=== PATIENT | female | born 1990 | race Caucasian/White ===

== ENCOUNTER → 2019-10-08 11:08 | Outpatient (CLI) | payer OTHER, SELFPAY ==
[2019-10-08 12:11] LABS: Appearance Urine UA CLEAR; Bilirubin Urine UA NEGATIVE (NEGATIVE); Color Urine UA YELLOW; Glucose Urine UA NEGATIVE (Negative); Ketones Urine UA NEGATIVE (NEGATIVE); Leukocyte Esterase Urine UA NEGATIVE (NEGATIVE); Nitrite Urine UA NEGATIVE (Negative); Occult Blood Urine UA NEGATIVE (Negative); Protein Urine UA NEGATIVE (Negative); Urobilinogen Urine UA 0.2 E.U./dL (0.2)
[2019-10-08 12:19] LABS: Add Manual Diff / Slide Review NO; Basophils Absolute Auto 0 /uL (0-100); Basophils Percent Auto 0.3 % (0-2); Eosinophils Absolute Auto 100 /uL (0-450); Eosinophils Percent Auto 1.3 % (2-4); Hemoglobin 13.3 g/dL (12.0-16.0); Lymphocytes Absolute Auto 1200 /uL (1100-4500); Lymphocytes Percent Auto 24.7 % (25-40); Mean Corpuscular Hemoglobin 33.1 PG (26-34); Mean Corpuscular Volume 94.7 fL (80-100); Monocytes Absolute Auto 300 /uL (0-900); Monocytes Percent Auto 5.9 % (3-14); Neutrophils Absolute Auto 3200 /uL (1500-7000); Neutrophils Percent Auto 67.8 % (50-75); Platelet Count 218 X10^3/uL (150-400); Red Blood Cell Count 4.02 X10^6/uL (4.0-5.2); Red Cell Distribution Width 12.2 % (11.6-14.8); White Blood Cell Count 4.7 X10^3/uL (4.5-11.0)
[2019-10-09 08:37] LABS: RPR Screen Non Reactive (Non Reactive)
[2019-10-09 12:08] LABS: Varicella IgG Antibody 1404 index (Immune >165)
[2019-10-10 16:00] LABS: Hepatitis B Surface Antigen NEGATIVE s/c (NEGATIVE); Rubella Antibody IgG 14.7 IU/mL (>15)
[2019-10-10 16:12] LABS: HIV 1 & 2 Ab/Ag 4th Gen Combo NEGATIVE (NEGATIVE); Hep C Virus Ab w/Reflex Quant NEGATIVE s/c (NEGATIVE)
== END ==
PROVIDERS: Referring Provider Obstetrics & Gynecology; Visit Provider Obstetrics & Gynecology
DX: Z34.81 Encounter for supervision of other normal pregnancy, first trimester (principal)
CPT/HCPCS: 36415; 80055; 81003; 86787; 86803; 86850; 86900; 86901; 87086; 87389

== ENCOUNTER → 2019-10-14 10:36 | Outpatient (CLI) | payer OTHER, SELFPAY ==
[2019-10-14 11:58] LABS: Specimen Label KIT TEST
== END ==
PROVIDERS: Referring Provider Obstetrics & Gynecology; Visit Provider Obstetrics & Gynecology
DX: Z34.81 Encounter for supervision of other normal pregnancy, first trimester (principal); Z3A.12 12 weeks gestation of pregnancy
CPT/HCPCS: 36415

== ENCOUNTER → 2019-12-05 09:43 | Outpatient (CLI) | payer OTHER, SELFPAY ==
--- NOTE | 2019-12-05 09:44 | DI.US.S_ITS ---
PROCEDURE: US OB >= 14 WEEKS FETUS INDICATIONS: ANATOMY OUTSIDE/PRIOR DATING DATA: First dating scan (date and location): 09/12/19 Estimated date of delivery (DESTINY) from first dating scan: 04/22/20. TECHNIQUE: Real-time scanning was performed of the fetus, with image documentation and biometric measurements. Endovaginal scanning: No COMPARISON: [facility], , OB <= 14 WEEKS FETUS, 09/12/2019, 13:02. FINDINGS: General: A single living intrauterine gestation is present. Presentation: Posterior fundal. Placenta: Placental position is posterior fundal, without previa. Amniotic fluid index: 15.4 cm, normal range is 5-24 cm. heart rate: 136 beats per minute. Maternal cervical canal: 3.4 cm long. Normal lower limit is 2.5 cm. biometrics: Biparietal diameter: 21 weeks 0 days Head circumference: 20 weeks 5 days Abdominal circumference: 20 weeks 3 days Femur length: 20 weeks 2 days Estimated gestational age from initial scan: 20 weeks 1 day Composite gestational age from present scan: 20 weeks 4 days Estimated weight and percentile: 354 g; 63rd percentile Measurement variability for biometric dating: +/- 7 days from 14 weeks to 15 weeks 6 days gestation, +/- 10 days from 16 weeks to 21 weeks 6 days gestation, +/- 2 weeks from 22 weeks to 27 weeks 6 days gestation, +/- 3 weeks for 28 weeks gestation or later. weight reference: 4500 g or EFW >90/95% is considered macrosomia or large for gestational age. EFW <10% is small for gestational age. EFW 5% or less is considered intra-uterine growth restriction. Anatomic survey: Neuro: Ventricles are non-dilated at less than 10 mm. Cisterna magna is normal at 3-11 mm. Cerebellum is normal in size and morphology. Nuchal skin fold: Normal at less than 6 mm between 14-21 weeks gestational age. Face: Nose and lips, facial profile are normal. Spine: No evidence for spina bifida. Heart: 4-chambered heart is present, with normal ventricular outflow tracts. Diaphragm: Diaphragm is intact. Stomach: Left-sided stomach is present. Kidneys: No hydronephrosis. Normal is less than 5 mm in 2nd trimester, less than 7 mm in 3rd trimester. Cord: 3-vessel cord has orthotopic insertion. Bladder: Normal in size. Extremities: All 4 extremities identified. IMPRESSION Single living IUP redemonstrated and interval growth is normal. Normal anatomic survey. Dictated by: Luis A AZEVEDO Interpreted: Tessa Hdz MD on 12/05/2019 at 11:22 Approved by: Tessa Hdz M.D. on 12/05/2019 at 13:22
== END ==
PROVIDERS: Referring Provider Obstetrics & Gynecology; Visit Provider Obstetrics & Gynecology
DX: Z34.02 Encounter for supervision of normal first pregnancy, second trimester (principal); Z3A.20 20 weeks gestation of pregnancy
CPT/HCPCS: 76811

== ENCOUNTER → 2020-02-04 08:20 | Outpatient (CLI) | payer OTHER, SELFPAY ==
[2020-02-04 11:00] LABS: Hematocrit 30.3 % (36-46); Hemoglobin 10.6 g/dL (12.0-16.0)
[2020-02-04 11:24] LABS: GTT (PREG) 1 Hour PP 50gm Dose 103 mg/dL (76-139)
== END ==
PROVIDERS: PCP Obstetrics & Gynecology; Referring Provider Obstetrics & Gynecology; Visit Provider Obstetrics & Gynecology
DX: Z34.82 Encounter for supervision of other normal pregnancy, second trimester (principal); Z3A.25 25 weeks gestation of pregnancy
CPT/HCPCS: 36415; 82950; 85014; 85018

== ENCOUNTER 2020-03-15 20:50 | Outpatient (CLI) | payer OTHER, SELFPAY | END 2020-03-15 21:30 | disposition home or self-care (01) | LOC: LABOR 21:16 → OB 03-16 13:01 | PROVIDERS: PCP Obstetrics & Gynecology; Referring Provider Obstetrics & Gynecology; Visit Provider Obstetrics & Gynecology | DX: O26.893 Other specified pregnancy related conditions, third trimester (principal); N89.8 Other specified noninflammatory disorders of vagina; O98.313 Other infections with a predominantly sexual mode of transmission complicating pregnancy, third trimester; Z3A.34 34 weeks gestation of pregnancy | CPT/HCPCS: 59025; 84112; G0378; G0379 ==

== ENCOUNTER → 2020-03-27 15:12 | Outpatient (CLI) | payer OTHER, SELFPAY ==
[2020-03-28 14:14] LABS: Strep Grp B PCR POS for Grp B Strep
== END ==
PROVIDERS: PCP Obstetrics & Gynecology; Visit Provider Obstetrics & Gynecology
DX: Z34.83 Encounter for supervision of other normal pregnancy, third trimester (principal); Z3A.36 36 weeks gestation of pregnancy
CPT/HCPCS: 87186; 87653

== ENCOUNTER → 2020-04-13 09:05 | Outpatient (CLI) | payer OTHER, SELFPAY ==
[2020-04-16 06:54] LABS: COVID19 Sendout Not Detected (Not Detect)
== END ==
PROVIDERS: PCP Obstetrics & Gynecology; Visit Provider Physician Assistant
DX: Z01.812 Encounter for preprocedural laboratory examination (principal); Z11.59 Encounter for screening for other viral diseases
CPT/HCPCS: 87635

== ENCOUNTER 2020-04-16 05:50 | Inpatient (IN) | payer OTHER, SELFPAY ==
[2020-04-16 06:24] LABS: Add Manual Diff / Slide Review NO; Basophils Absolute Auto 0 /uL (0-100); Basophils Percent Auto 0.3 % (0-2); Eosinophils Absolute Auto 100 /uL (0-450); Eosinophils Percent Auto 0.8 % (2-4); Lymphocytes Absolute Auto 1400 /uL (1100-4500); Lymphocytes Percent Auto 16.9 % (25-40); Mean Corpuscular HGB Conc 34.2 % (30-36); Mean Corpuscular Hemoglobin 32.5 PG (26-34); Monocytes Absolute Auto 800 /uL (0-900); Monocytes Percent Auto 9.1 % (3-14); Neutrophils Absolute Auto 6000 /uL (1500-7000); Neutrophils Percent Auto 72.9 % (50-75); Platelet Count 150 X10^3/uL (150-400); White Blood Cell Count 8.3 X10^3/uL (4.5-11.0)
[2020-04-16] MEDS: LACTATED RINGERS 1,000 ML 100 ML IV ×4 (06:52→14:27)
[2020-04-16] MEDS: CLINDAMYCIN 900 MG/50 ML PIGGYBACK 50 MG IV (06:53)
[2020-04-16 06:57] VITALS: BP 109/68
--- NOTE | 2020-04-16 07:40 | P.HPOB_ITS ---
OB HPI Date/Time Date of admission: 04/16/20 Date Patient Seen: 04/16/20 Time Patient Seen: 07:40 History of Present Condition Chief complaint: REPEAT : 2 Para: 1 Estimated Date of Delivery: 04/22/20 Estimated Gestational Age (weeks): 39 Narrative: Yesi Ibarra is a 29 year old 001 at 39 weeks 1 days of a history of prior section for arrest of descent in the 2nd stage, presenting for scheduled repeat section. Patient has no complaints today obstetrical or otherwise. The patient has had an entirely uncomplicated , with a normal anatomy scan and dating confirmed by first-trimester ultrasound. The patient has a history of genital herpes and has been on Valtrex prophylaxis since 36 weeks. She has no contributory medical, surgical, family, or social history. Indications Operative indications ( section): previous uterine surgery History of Present care: good care, initiated at week # (8), number of visits (12) and po unds weight gain (44) Dating criteria: LMP confirmed by 1st trimester US Ultrasounds: normal 1st trimester US and normal mid trimester US Obstetrical complications: none Medical complications: none Preadmission Labs Blood type: B (+) positive -: Antibody screen: negative, GBS status: negative, HBsAG: negative, HIV: negative, HSV 2: positive (History of genital herpes) and RPR/VDLR: negative -: Chlamydia screen: not detected -: Rubella: not immune and Varicella: immune PAP: Normal Cell-free DNA: Cell free DNA negative, female fetus Urine: Normal 1 hr GTT: 103 Prior (ies) History: G1: 08/14/17, pCS for 2nd stage arrest, 40+ weeks, 8#10, F Evaluation Evaluation Baseline heart rate: 140 Variability: Moderate (11-25) monitor accelerations: Present monitor decelerations: Absent Category of Tracing: Reactive Laboratory results: Laboratory Tests 04/16/20 06:10 WBC 8.3 RBC 4.00 Hgb 13.0 Hct 38.0 MCV 95.0 MCH 32.5 MCHC 34.2 RDW 16.0 H Plt Count 150 Neut % (Auto) 72.9 Lymph % (Auto) 16.9 L [place] % (Auto) 9.1 Eos % (Auto) 0.8 L Baso % (Auto) 0.3 Neut # (Auto) 6000 Lymph # (Auto) 1400 [place] # (Auto) 800 Eos # (Auto) 100 Baso # (Auto) 0 PFSH Medical History Anxiety (Acute) Interstitial cystitis (Acute) Surgical History S/P cystoscopy (Acute ~2011) S/P primary low transverse (Acute ~08/14/17) Family History Father Diabetes mellitus Mother Anemia Grandfather Family estrangement Unknown whether patient has any health problems Grandmother Family estrangement Unknown whether patient has any health problems Grandfather Brain tumor Prostate cancer Grandmother Heavy smoker Lung cancer Brother Mental health disorder Social History marital status: number of children: 1 household members: spouse and children pets and animals: Yes (X 2 cats and X 2 dogs : aware) education level: college ([employer] ) occupational status: employed current occupational exposures/hazards: No 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; 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 special 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 needs: No Smoking Status: Never smoker second hand exposure: No alcohol intake: former (pre-pregancy : occasional) substance use type: does not use Meds Home Medications and Allergies Home Medications Medication Instructions Recorded Confirmed Type prenat.vits,alvin,wvv-krtq-coclf 1 tab PO DAILY 09/09/19 04/16/20 History ferrous sulfate 325 mg (65 mg 325 mg PO DAILY 02/06/20 04/16/20 History iron) tablet Allergies Allergy/AdvReac Type Severity Reaction Status Date / Time amoxicillin Allergy Severe swelling, Verified 04/16/20 06:42 itchy around mouth and neck Penicillins Allergy Severe has not Verified 04/16/20 06:42 had for many years Review of Systems Constitutional Constitutional: Reports system reviewed and no additional complaints, except as documented Cardiovascular Cardiovascular: Reports system reviewed and no additional complaints, except as documented Respiratory Respiratory: Reports system reviewed and no additional complaints, except as documented Gastrointestinal Gastrointestinal: Reports system reviewed and no additional complaints, except as documented Genitourinary Genitourinary: Reports system reviewed and no additional complaints, except as documented Neurologic Neurologic: Reports system reviewed and no additional complaints, except as documented Exam Vital Signs (past 8 hours): - 04/16/20 06:57 Blood Pressure 109/68 Const General: cooperative, healthy appearing and comfortable GI Palpation: soft and No tender Other: PUPPS rash Objective Labs Result Diagrams: 04/16/20 06:10 Labs: Laboratory Results - last 24 hr 04/16/20 06:10 WBC 8.3 RBC 4.00 Hgb 13.0 Hct 38.0 MCV 95.0 MCH 32.5 MCHC 34.2 RDW 16.0 H Plt Count 150 Neut % (Auto) 72.9 Lymph % (Auto) 16.9 L [place] % (Auto) 9.1 Eos % (Auto) 0.8 L Baso % (Auto) 0.3 Neut # (Auto) 6000 Lymph # (Auto) 1400 [place] # (Auto) 800 Eos # (Auto) 100 Baso # (Auto) 0 Assessment and Plan Assessment and Plan Assessment and Plan narrative: This patient presents for scheduled repeat section, with no complaints obstetrical or otherwise. She will be admitted for the usual protocol and taken for repeat section. - clindamycin and gentamicin given PCN allergy - cEFM, toco during admission - CBC, T&S
--- NOTE | 2020-04-16 07:40 | PM.PREOP ---
Pre-operative Note COVID-19 Result date/Date tested (Pos, Neg/Pending): 04/13/20 Interval Note History & Physical reviewed/Exam performed by Physician: Yes Changes to H&P: No
[2020-04-16] MEDS: GENTAMICIN 450 MG in SODIUM CHLORIDE 0.9% 100 ML 111.25 ML IV (07:51)
--- NOTE | 2020-04-16 08:20 | SUR.OPER ---
T's 1445. Placenta and cord blood to OB with OB Rn. TOB live female @ 5015.
--- NOTE | 2020-04-16 08:28 | SUR.OPER ---
Supine on Padded OR bed, head on pillow, safety belt at thigh, arms secured on padded arm boards at <90 degrees abduction. Bump under right buttock. Legs uncrossed with pillow under knees, gel pad to heels, tape over blanket to lower legs.
--- NOTE | 2020-04-16 09:15 | P.OP_ITS ---
Operative Date/Time/Diagnoses Date of procedure: 04/16/20 Time of procedure: 07:45 Pre-op diagnosis: history of section, term Post-op diagnosis: same Procedure & Clinicians Procedure: repeat section Same procedure as scheduled: Yes Indications: History of section, term Surgeon: Iman Delgado Resaw Carriage Operator: Glory Padron Anesthesia Type: Spinal Operative Notes Findings: female infant in cephalic presentation, apgars 8 and 9. weight 8#15, normal uterus, tubes, ovaries. Moderate amount of scar tissue, primarily at level of fascia and rectus. Velamentous cord insertion. Closure Type: primary Applied: catheter Estimated Blood Loss (mL): 500 Procedure in detail: EBL: 500 cc Fluids:1200ccs LR UOP: 200ccs Procedures: The patient was taken to the operating room where spinal anesthesia was placed and found to be adequate. She was prepped and draped in the normal sterile fashion in the dorsal supine position with a leftward tilt. A Pfannenstiel skin incision was made with a scalpel and carried through to the underlying layer of fascia. The fascia was incised in the midline and the incision extended laterally with Pedro scissors. The superior aspect of this incision was grasped with Ngoc clamps, elevated, and the underlying rectus muscles dissected off bluntly and with the curved Pedro scissors. Attention was then turned to the inferior aspect of this incision which, in a similar fashion, was grasped, tented up with the Ngoc clamps, and the rectus muscles dissected off bluntly and with the curved Pedro scissors. The rectus muscles were then in the midline, and the peritoneum identified, tented up, and entered sharply with Metzenbaum scissors. This portion of the procedure was notable for moderate amount of scar tissue. The peritoneal incision was extended superiorly and inferiorly with good visualization of the bladder. The bladder blade was inserted and the vesicouterine peritoneum identified, grasped with pickups, and entered sharply with the Metzenbaum scissors. This incision was extended laterally, and the bladder flap created digitally. The bladder blade was then reinserted and the lower uterine segment incised in transverse fashion with the scalpel. The uterine incision was bluntly extended laterally. The bladder blade was removed, and the infant's head delivered atraumatically with assistance of a vacuum. After 30 seconds of delayed cord clamping, the cord was clamped and cut. The nose and mouth were suctioned as needed with a bulb syringe, and the was handed off to awaiting pediatricians. The placenta was then removed manually, notable for approximately 6 cm a velamentous cord insertion, and the uterus was cleared of all clots and debris. The uterine incision was repaired with 1-0 chromic in a running, locked fashion a 2nd layer of the same suture was used to obtain excellent hemostasis. The gutters were cleared of all clots and debris. The bladder flap was closed with 2-0 Vicryl in a running fashion, the peritoneum was closed with 3-0 Vicryl, and the fascia reapproximated with 0 Vicryl in a running fashion. The subcutaneous layer was placed with 3 0 Vicryl in an interrupted fashion and the skin was closed with 4-0 biosyn in a running fashion. The patient tolerated the procedure well. Sponge lap and needle counts were correct x2. 9 mg of clindamycin and 5 mg of gentamicin per kg were given at commencement of the case. The patient was taken to the recovery room in stable condition. Complications: none Post-operative Condition: stable Disposition: PACU Plan for aftercare: Routine postoperative care
[2020-04-16 09:16] VITALS: BP 100/68; BP 102/65; PULSE 80; PULSE 89; RESP 10; RESP 12; TEMP 36.3; O2SAT 100
[2020-04-16 09:22] VITALS: BP 102/70; PULSE 82; RESP 10; TEMP 36.4; O2SAT 100
[2020-04-16 09:27] VITALS: BP 106/74; PULSE 79; RESP 16; O2SAT 100
[2020-04-16] MEDS: KETOROLAC 30 MG/ML VIAL IV (14:29)
[2020-04-16] MEDS: ACETAMINOPHEN 325 MG TABLET 650 MG PO (20:58)
[2020-04-16] MEDS: IBUPROFEN 600 MG TABLET PO (20:58)
[2020-04-17] MEDS: IBUPROFEN 600 MG TABLET PO ×2 (04:00→09:23)
[2020-04-17] MEDS: ACETAMINOPHEN 325 MG TABLET 650 MG PO ×2 (04:01→09:24)
[2020-04-17 06:40] LABS: Add Manual Diff / Slide Review NO; Basophils Absolute Auto 0 /uL (0-100); Basophils Percent Auto 0.3 % (0-2); Eosinophils Absolute Auto 100 /uL (0-450); Eosinophils Percent Auto 0.7 % (2-4); Hematocrit 33.1 % (36-46); Hemoglobin 11.4 g/dL (12.0-16.0); Lymphocytes Absolute Auto 1000 /uL (1100-4500); Lymphocytes Percent Auto 11.1 % (25-40); Mean Corpuscular HGB Conc 34.5 % (30-36); Mean Corpuscular Hemoglobin 33.1 PG (26-34); Mean Corpuscular Volume 95.8 fL (80-100); Monocytes Absolute Auto 900 /uL (0-900); Monocytes Percent Auto 9.6 % (3-14); Neutrophils Absolute Auto 7100 /uL (1500-7000); Neutrophils Percent Auto 78.3 % (50-75); Platelet Count 122 X10^3/uL (150-400); Red Blood Cell Count 3.46 X10^6/uL (4.0-5.2); Red Cell Distribution Width 15.5 % (11.6-14.8)
--- NOTE | 2020-04-17 07:34 | PM.OBPN.1 ---
Exam Vital Signs (past 8 hours): Oxygen Delivery Method Room Air Objective Labs Result Diagrams: 04/17/20 06:00 Labs: Laboratory Results - last 24 hr 04/16/20 04/17/20 06:10 06:00 WBC 9.0 RBC 3.46 L Hgb 11.4 L Hct 33.1 L MCV 95.8 MCH 33.1 MCHC 34.5 RDW 15.5 H Plt Count 122 L Neut % (Auto) 78.3 H Lymph % (Auto) 11.1 L [place] % (Auto) 9.6 Eos % (Auto) 0.7 L Baso % (Auto) 0.3 Neut # (Auto) 7100 H Lymph # (Auto) 1000 L [place] # (Auto) 900 Eos # (Auto) 100 Baso # (Auto) 0 Blood Type B Positive Antibody Screen Negative Assessment & Plan Time Spent With Patient Time: Total time spent is greater than 50% in coordination of care (as documented) at patient's floor/unit and/or counseling patient:
[2020-04-17 15:45] VITALS: BP 106/74; PULSE 79; RESP 16; TEMP 36.4
--- NOTE | 2020-04-17 18:12 | PM.OBDS.1 ---
Discharge Providers Provider Date of admission: 04/16/20 05:50 Discharge Date: 04/17/20 Primary care physician: Iman Delgado MD Consults: 04/16/20 10:41 Consult to Relocation Specialist Routine Comment: Discharge provider: Iman Delgado MD Summary Hospital Course Date Patient Seen: 04/17/20 Time Patient Seen: 07:45 Procedures: repeat section Peripartum Data Delivery Method: Section Procedures: repeat section complications: none [place] 1: Gender: Female Disposition of : home Status at Discharge Cognitive/behavioral status at discharge: oriented Functional status at discharge: independent ambulation Overall status at discharge: patient is progressing back to baseline Time Spent with Patient Time attestation: Total time spent providing and/or coordinating discharge services: Objective Labs Result Diagrams: 04/17/20 06:00 Labs: Laboratory Results - last 24 hr 04/17/20 06:00 WBC 9.0 RBC 3.46 L Hgb 11.4 L Hct 33.1 L MCV 95.8 MCH 33.1 MCHC 34.5 RDW 15.5 H Plt Count 122 L Neut % (Auto) 78.3 H Lymph % (Auto) 11.1 L [place] % (Auto) 9.6 Eos % (Auto) 0.7 L Baso % (Auto) 0.3 Neut # (Auto) 7100 H Lymph # (Auto) 1000 L [place] # (Auto) 900 Eos # (Auto) 100 Baso # (Auto) 0 Exam Vital Signs (past 8 hours): -112/76, HR 80 04/17/20 15:45 Temperature 97.6 F Pulse Rate 79 Respiratory Rate 16 Blood Pressure 106/74 Oxygen Delivery Method Room Air Narrative Exam Narrative: Patient reports feeling well this AM with good pain control, moderate lochia, ambulating, passing flatus, voiding, tolerating PO with no other complaints. Const General: cooperative, healthy appearing, comfortable and acute distress Resp Effort & Inspection: normal respiratory effort Auscultation: clear to auscultation bilaterally Cardio Rate: regular rate Rhythm: regular rhythm GI Inspection: non-distended Palpation: soft and No tender Other: fundus firm, well below u Discharge Plan Discharge Plan Patient Disposition: Home Discharge orders & Medications Prescriptions: New acetaminophen 325 mg capsule 650 mg PO Q6H PRN (Reason: section) Qty: 20 RF: 0 ibuprofen 600 mg tablet 600 mg PO Q6H PRN (Reason: delivery) Qty: 30 RF: 0 docusate sodium 100 mg capsule 100 mg PO BID Qty: 30 RF: 0 oxycodone 5 mg tablet 5 mg PO Q6H PRN (Reason: pain) Qty: 14 RF: 0 Continued ferrous sulfate 325 mg (65 mg iron) tablet 325 mg PO DAILY RF: 0 prenat.vits,alvin,[id number]-wobz-gnefk Tablet 1 tab PO DAILY RF: 0 Follow up/Referrals: Iman Delgado MD [Primary Care Provider] - 04/24/20 12:00 pm (incision check Check in 15 minutes prior to appointment) Diet/Activity/Treatments Diet: Regular Activity: Nothing in the vagina for 6 weeks. Avoid heavy lifting for 6 weeks. If you have increasing bleeding, fevers, chills, nausea, vomiting, or any other questions or concerns, call or come to the ED. Skin/Wound/Dressing Care Report to your healthcare provider any signs of infection, such as:: chills, fever, night sweats, increased pain, unusual drainage and unusual redness Visit Report/Discharge Packet Instructions: DI for , DI for Prescription Opioid Use Stand Alone Forms: Discharge: Care Visit Report Forms: Patient Portal/API, Stroke Signs & Symptoms Discharge Data Primary Care Provider: Iman Delgado
== END 2020-04-17 16:30 | disposition home or self-care (01) | DRG 787 ==
PROVIDERS: Admitting Provider Obstetrics & Gynecology; PCP Obstetrics & Gynecology; Referring Provider Obstetrics & Gynecology; Visit Provider Obstetrics & Gynecology
PROC: 10D00Z1 Extraction of Products of Conception, Low, Open Approach (ICD-10-PCS; CPT 59514; principal; 2020-04-16 07:45)
DX: O34.219 Maternal care for unspecified type scar from previous cesarean delivery (principal); O98.32 Other infections with a predominantly sexual mode of transmission complicating childbirth; B00.9 Herpesviral infection, unspecified; Z3A.39 39 weeks gestation of pregnancy; Z37.0 Single live birth
CPT/HCPCS: 36415; 59050; 59510; 59514; 85025; 86850; 86900; 86901; J1885; J2274; J2405; J2590; J2704

== ENCOUNTER → 2020-06-04 09:55 | Outpatient (CLI) | payer OTHER, SELFPAY ==
--- NOTE | 2020-06-04 09:57 | DI.US.S_ITS ---
PROCEDURE: US THYROID INDICATIONS: EVALUATE FOR ENLARGED RIGHT THYROID NODULE. TECHNIQUE: Real-time scanning was performed of the thyroid gland, with image documentation. COMPARISON: None. FINDINGS: Right: Thyroid lobe measures 5.6 by 1.4 x 1.9 cm, and is homogeneous in echotexture. Left: Thyroid lobe measures 5.5 x 1.9 x 1.3 cm, and is homogenous in echotexture. Isthmus: 2.2 mm thick. IMPRESSION: 1. Mildly elongated thyroid lobes bilaterally without nodules. Dictated by: Zina Vega M.D. on 06/04/2020 at 14:12 Approved by: Zina Vega M.D. on 06/04/2020 at 14:26
== END ==
PROVIDERS: Referring Provider Obstetrics & Gynecology; Visit Provider Obstetrics & Gynecology
DX: E04.9 Nontoxic goiter, unspecified (principal); Z01.89 Encounter for other specified special examinations
CPT/HCPCS: 36415; 76536; 84439; 84443

== ENCOUNTER → 2020-08-04 11:39 | Outpatient (CLI) | payer OTHER, SELFPAY ==
[2020-08-04 12:18] LABS: Hemoglobin 14.5 g/dL (12.0-16.0); Mean Corpuscular HGB Conc 34.7 % (30-36); Mean Corpuscular Hemoglobin 32.7 PG (26-34); Mean Corpuscular Volume 94.5 fL (80-100); Platelet Count 262 X10^3/uL (150-400); Red Blood Cell Count 4.44 X10^6/uL (4.0-5.2); Red Cell Distribution Width 12.9 % (11.6-14.8); White Blood Cell Count 4.9 X10^3/uL (4.5-11.0)
[2020-08-04 12:46] LABS: HEMOLYSIS < 15 (0-50); Iron 111 ug/dL (37-170)
[2020-08-04 12:57] LABS: Percent Iron Saturation 41 % (15-50); Total Iron Binding Capacity 272 ug/dL (265-497); Transferrin 199 mg/dL (206-381)
[2020-08-04 13:39] LABS: Vitamin B12 418 pg/mL (239-931)
[2020-08-05 07:36] LABS: Thyroid Peroxidase Antibodies 13 IU/mL (0-34)
== END ==
PROVIDERS: PCP Registered Nurse Diabetes Educator; Referring Provider Registered Nurse Diabetes Educator; Visit Provider Registered Nurse Diabetes Educator
DX: E04.9 Nontoxic goiter, unspecified (principal); R53.83 Other fatigue
CPT/HCPCS: 36415; 82306; 82607; 83540; 83550; 84443; 85027; 86376

== ENCOUNTER → 2021-06-21 10:06 | Outpatient (CLI) | payer OTHER, SELFPAY ==
[2021-06-21 10:54] LABS: COVID19 -Nasal RAPID Negative (Negative)
== END ==
PROVIDERS: PCP Registered Nurse Diabetes Educator; Visit Provider Nurse Practitioner Family
DX: Z20.822 Contact with and (suspected) exposure to COVID-19 (principal); R50.9 Fever, unspecified
CPT/HCPCS: 87635

== ENCOUNTER → 2021-06-27 11:06 | Outpatient (CLI) | payer OTHER, SELFPAY ==
[2021-06-27 12:05] LABS: Specimen Label NATERA
[2021-06-27 12:51] LABS: Appearance Urine UA CLEAR; Bilirubin Urine UA NEGATIVE (NEGATIVE); Color Urine UA YELLOW; Glucose Urine UA NEGATIVE (Negative); Ketones Urine UA NEGATIVE (NEGATIVE); Leukocyte Esterase Urine UA NEGATIVE (NEGATIVE); Nitrite Urine UA NEGATIVE (Negative); Occult Blood Urine UA NEGATIVE (Negative); Protein Urine UA NEGATIVE (Negative); Specific Gravity Urine UA 1.025 (1.000-1.035); Urobilinogen Urine UA 0.2 E.U./dL (0.2)
[2021-06-27 12:52] LABS: Add Manual Diff / Slide Review NO; Basophils Absolute Auto 0 /uL (0-100); Basophils Percent Auto 0.3 % (0-2); Eosinophils Absolute Auto 100 /uL (0-450); Eosinophils Percent Auto 1.3 % (2-4); Hematocrit 38.9 % (36-46); Hemoglobin 13.7 g/dL (12.0-16.0); Lymphocytes Absolute Auto 1300 /uL (1100-4500); Lymphocytes Percent Auto 22.7 % (25-40); Mean Corpuscular HGB Conc 35.3 % (30-36); Mean Corpuscular Hemoglobin 32.9 PG (26-34); Mean Corpuscular Volume 93.2 fL (80-100); Monocytes Absolute Auto 400 /uL (0-900); Monocytes Percent Auto 6.6 % (3-14); Neutrophils Absolute Auto 4000 /uL (1500-7000); Neutrophils Percent Auto 69.1 % (50-75); Platelet Count 226 X10^3/uL (150-400); Red Blood Cell Count 4.18 X10^6/uL (4.0-5.2); Red Cell Distribution Width 12.5 % (11.6-14.8); White Blood Cell Count 5.7 X10^3/uL (4.5-11.0)
[2021-06-27 15:45] LABS: Hepatitis B Surface Antigen NEGATIVE s/c (NEGATIVE); Rubella Antibody IgG 12.5 IU/mL (>15)
[2021-06-27 16:03] LABS: HIV 1 & 2 Ab/Ag 4th Gen Combo NEGATIVE (NEGATIVE); Hep C Virus Ab w/Reflex Quant NEGATIVE s/c (NEGATIVE)
[2021-06-28 07:51] LABS: RPR Screen Non Reactive (Non Reactive)
[2021-06-28 08:21] LABS: Varicella IgG Antibody 1051 index (Immune >165)
== END ==
PROVIDERS: PCP Registered Nurse Diabetes Educator; Referring Provider Obstetrics & Gynecology; Visit Provider Obstetrics & Gynecology
DX: Z34.80 Encounter for supervision of other normal pregnancy, unspecified trimester
CPT/HCPCS: 36415; 80055; 81003; 86787; 86803; 86850; 86900; 86901; 87086; 87389

== ENCOUNTER → 2021-08-28 09:09 | Outpatient (CLI) | payer OTHER, SELFPAY ==
--- NOTE | 2021-08-28 09:10 | DI.US.S_ITS ---
PROCEDURE: US OB >= 14 WEEKS FETUS INDICATIONS: ANATOMY OUTSIDE/PRIOR DATING DATA: Last menstrual period (LMP): April 09, 2021. LMP-based estimated date of delivery (DESTINY): January 14, 2022. First dating scan (date and location): May 30, 2021. Estimated date of delivery (DESTINY) from first dating scan: January 15, 2022. TECHNIQUE: Real-time scanning was performed of the fetus, with image documentation and biometric measurements. COMPARISON: [facility], , US OB >= 14 WEEKS FETUS, 03/27/2020, 14:52. FINDINGS: General: A single living intrauterine gestation is present. Presentation: Vertex. Placenta: Placental position is anterior , without previa. Amniotic fluid index: 15.1 cm, normal range is 5-24 cm. Single deepest vertical pocket is 4.9 cm. heart rate: 149 beats per minute. Maternal cervical canal: 4.9 cm long. Normal lower limit is 2.5 cm. biometrics: Biparietal diameter: 4.6 cm Head circumference: 17.5 cm Abdominal circumference: 15.2 cm Femur length: 3.4 cm Clinically estimated gestational age: 20 weeks Composite gestational age from present scan: 20 weeks, 2 days Estimated weight and percentile: 355 g +/-53 g; 72 percentile Anatomic survey: Neuro: Ventricles are non-dilated at less than 10 mm. Cisterna magna is normal at 3-11 mm. Cerebellum is normal in size and morphology. Nuchal skin fold: Normal at less than 6 mm between 14-21 weeks gestational age. Face: Nose and lips, facial profile are normal. Spine: No evidence for spina bifida. Heart: 4-chambered heart is present, with normal ventricular outflow tracts. Diaphragm: Diaphragm is intact. Stomach: Left-sided stomach is present. Kidneys: No hydronephrosis. Normal is less than 5 mm in 2nd trimester, less than 7 mm in 3rd trimester. Cord: 3-vessel cord has orthotopic insertion. Bladder: Normal in size. Extremities: All 4 extremities identified. IMPRESSION: Live single intrauterine gestation. We strive to produce accurate, complete, and clear reports of imaging services. To assist us in improving patient care, this report was composed using standard report templates and voice recognition software. Therefore, it may contain abnormal punctuation, insertions and/or omissions. Occasional wrong-word or sound-alike substitutions may occur. Though we review the report and make efforts to correct it, we do recommend that the report be read carefully in proper context to recognize any text inaccuracies. Dictated by: Khris Mckeon M.D. on 08/28/2021 at 11:20 Approved by: Khris Mckeon M.D. on 08/28/2021 at 11:30
[2021-08-30 20:38] LABS: AFP Value 66.9 ng/mL (.); Insulin Dep Diabetes No (.); OSBR Risk 1IN 5096 (.); Results Report (.); Test Results *Screen Negative* (.)
== END ==
PROVIDERS: PCP Registered Nurse Diabetes Educator; Referring Provider Obstetrics & Gynecology; Visit Provider Obstetrics & Gynecology
DX: Z34.82 Encounter for supervision of other normal pregnancy, second trimester (principal); Z3A.20 20 weeks gestation of pregnancy
CPT/HCPCS: 36415; 76811; 82105

== ENCOUNTER → 2021-10-30 10:44 | Outpatient (CLI) | payer OTHER, SELFPAY ==
[2021-10-30 12:50] LABS: Hematocrit 32.9 % (36-46); Hemoglobin 11.6 g/dL (12.0-16.0)
[2021-10-30 13:12] LABS: GTT (PREG) 1 Hour PP 50gm Dose 109 mg/dL (76-139)
== END ==
PROVIDERS: PCP Registered Nurse Diabetes Educator; Referring Provider Obstetrics & Gynecology; Visit Provider Obstetrics & Gynecology
DX: Z34.82 Encounter for supervision of other normal pregnancy, second trimester (principal); Z3A.26 26 weeks gestation of pregnancy
CPT/HCPCS: 36415; 82950; 85014; 85018

== ENCOUNTER 2021-12-03 10:20 | Outpatient (CLI) | payer OTHER, SELFPAY ==
--- NOTE | 2021-12-03 11:00 | P.TNLD_ITS ---
Visit Information Visit Information Date of evaluation: 12/03/21 Primary OB Provider: Iman Delgado Reason for Evaluation: Yes non-stress test Comments/Additional reasons for admission: Patient sent for eval for contractions from office. Vaginal bleeding appears to be from vulvar irritation. Vital Signs Vital Signs: 114/72, HR 120, afebrile [facility] Medical History (Updated 05/23/21 @ 09:13 by Sheyla Lemon RN) Anxiety Interstitial cystitis (~2012) Surgical History (Updated 05/23/21 @ 09:14 by Sheyla Lemon RN) S/P cystoscopy (~2011) S/P primary low transverse (~04/16/20) Family History (Updated 05/23/21 @ 09:17 by Sheyla Lemon RN) Father Diabetes mellitus Mother Anemia Grandfather Family estrangement Unknown whether patient has any health problems Grandmother Family estrangement Unknown whether patient has any health problems Grandfather Brain tumor Prostate cancer Perforated sigmoid colon Grandmother Heavy smoker Lung cancer Brother Mental health disorder ADHD Traumatic brain injury Heroin addiction Social History marital status: number of children: 1 household members: spouse and children lives independently: Yes caregiver/support person: No pets and animals: Yes (X 2 cats and X 2 dogs : aware) education level: college ([employer] ) occupational status: employed ([employer].) current occupational exposures/hazards: No 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 ) during the past year weight has: decreased > 10 lbs (losing baby weight) well-balanced diet: daily or most days (ongoing nausea, some aversions, not feeling great.) daily servings fruits/ve or more times/day (Vegetarian: lots of both fruits/veg.) caffeine: Yes (1 cup a day. ) Type(s) of exercise: bicycling (Spinning. 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 ) frequency: 3-4 times per week duration: 30-45 minutes/day Evaluation Evaluation Baseline heart rate: 125 Variability: Moderate (11-25) monitor accelerations: Present Monitor Decelerations: Absent Category of Tracing: Reactive Status: Category l Comments: No ctx noted. Diagnosis, Plan/Disposition Plan/Disposition Plan: Home with routine precautions. OB Disposition: home
== END 2021-12-03 11:02 | disposition home or self-care (01) ==
LOC: LABOR 10:35 → OB 12-05 07:23
PROVIDERS: PCP Registered Nurse Diabetes Educator; Referring Provider Obstetrics & Gynecology; Visit Provider Obstetrics & Gynecology
DX: O47.03 False labor before 37 completed weeks of gestation, third trimester (principal); O46.93 Antepartum hemorrhage, unspecified, third trimester; Z3A.34 34 weeks gestation of pregnancy
CPT/HCPCS: 59025; G0378; G0379

== ENCOUNTER → 2021-12-03 10:22 | Outpatient (CLI) | payer OTHER, SELFPAY ==
[2021-12-03 15:01] LABS: Appearance Urine UA CLEAR; Bilirubin Urine UA NEGATIVE (NEGATIVE); Color Urine UA YELLOW; Glucose Urine UA NEGATIVE (Negative); Ketones Urine UA TRACE (NEGATIVE); Leukocyte Esterase Urine UA NEGATIVE (NEGATIVE); Nitrite Urine UA NEGATIVE (Negative); Occult Blood Urine UA NEGATIVE (Negative); Protein Urine UA TRACE (Negative); Specific Gravity Urine UA 1.015 (1.000-1.035); Urobilinogen Urine UA 0.2 E.U./dL (0.2)
[2021-12-03 15:33] LABS: Amorphous Sediment Urine 1+; Bacteria Urine Few (2-10); RBC Urine 0-1/HPF (0-5/HPF); Squamous Epithelial Cell Urine 1-5 /HPF (0-5/HPF); Transitional Epi Cells Urine 0-1/HPF (0-5/HPF); WBC Urine 1-5/HPF (0-5/HPF)
[2021-12-04 14:08] LABS: Candida species Negative (Negative); Gardnerella vaginalis Negative (Negative); Trichomoas vaginalis Negative (Negative)
== END ==
PROVIDERS: PCP Registered Nurse Diabetes Educator; Visit Provider Obstetrics & Gynecology
DX: O47.03 False labor before 37 completed weeks of gestation, third trimester (principal); O46.93 Antepartum hemorrhage, unspecified, third trimester; O26.893 Other specified pregnancy related conditions, third trimester; N89.8 Other specified noninflammatory disorders of vagina; Z3A.34 34 weeks gestation of pregnancy
CPT/HCPCS: 59025; 81001; 87086; 87480; 87510; 87660

== ENCOUNTER → 2021-12-18 09:36 | Outpatient (CLI) | payer OTHER, SELFPAY ==
[2021-12-19 08:18] LABS: Strep Grp B PCR NEG for Grp B Strep
== END ==
PROVIDERS: PCP Registered Nurse Diabetes Educator; Visit Provider Obstetrics & Gynecology
DX: Z34.83 Encounter for supervision of other normal pregnancy, third trimester (principal); Z3A.36 36 weeks gestation of pregnancy
CPT/HCPCS: 87653

== ENCOUNTER 2021-12-30 08:49 | Observation (INO) | payer OTHER, SELFPAY | END 2021-12-30 11:55 | disposition home or self-care (01) | PROVIDERS: Admitting Provider Obstetrics & Gynecology; PCP Registered Nurse Diabetes Educator; Referring Provider Obstetrics & Gynecology; Visit Provider Obstetrics & Gynecology | DX: Z03.71 Encounter for suspected problem with amniotic cavity and membrane ruled out (principal); O47.1 False labor at or after 37 completed weeks of gestation; O36.8130 Decreased fetal movements, third trimester, not applicable or unspecified; Z3A.37 37 weeks gestation of pregnancy | CPT/HCPCS: 59025; 59050; 84112; G0378; G0379 ==

== ENCOUNTER 2022-01-09 05:29 | Inpatient (IN) | payer OTHER, SELFPAY ==
[2022-01-09 06:25] VITALS: BP 109/59
[2022-01-09] MEDS: LACTATED RINGERS 1,000 ML 100 ML IV ×3 (06:45→10:20)
[2022-01-09 06:46] LABS: COVID19 -Nasal RAPID Negative (Negative)
[2022-01-09 07:03] LABS: Add Manual Diff / Slide Review NO; Basophils Absolute Auto 0 /uL (0-100); Basophils Percent Auto 0.4 % (0-2); Eosinophils Absolute Auto 100 /uL (0-450); Eosinophils Percent Auto 1.1 % (2-4); Hematocrit 32.3 % (36-46); Hemoglobin 10.9 g/dL (12.0-16.0); Lymphocytes Absolute Auto 1300 /uL (1100-4500); Lymphocytes Percent Auto 19.4 % (25-40); Mean Corpuscular HGB Conc 33.9 % (30-36); Mean Corpuscular Hemoglobin 29.8 PG (26-34); Mean Corpuscular Volume 87.9 fL (80-100); Monocytes Absolute Auto 600 /uL (0-900); Neutrophils Absolute Auto 4600 /uL (1500-7000); Neutrophils Percent Auto 70.1 % (50-75); Platelet Count 199 X10^3/uL (150-400); Red Blood Cell Count 3.67 X10^6/uL (4.0-5.2); Red Cell Distribution Width 14.5 % (11.6-14.8); White Blood Cell Count 6.6 X10^3/uL (4.5-11.0)
--- NOTE | 2022-01-09 07:40 | P.HPOB_ITS ---
OB HPI Date/Time Date of admission: 01/09/22 Date Patient Seen: 01/09/22 Time Patient Seen: 07:40 History of Present Condition Chief complaint: REPEAT DESTINY Calculator Estimated Delivery Date Method Current WG Current Estimate 01/14/22 LMP (Certain) 39w 2d Other Estimates 01/15/22 Ultrasound #1 39w 1d Estimated Gestational Age (weeks): 39+2 : 3 Para: 2 care: good care Dating criteria OB: LMP confirmed by 1st trimester US Ultrasounds: normal 1st trimester US and normal mid trimester US Medical complications OB: none Indications Operative indications ( section): previous uterine surgery Preadmission Labs Last OB Lab Results: Blood Type B Positive 01/09/22 06:40 Antibody Screen Negative 01/09/22 06:40 Hematocrit 32.3 % (36-46) L 01/09/22 06:40 Hemoglobin 10.9 g/dL (12.0-16.0) L 01/09/22 06:40 Hepatitis B Surface Antigen Negative s/c (NEGATIVE) 06/27/21 11 :49 Hepatitis C Antibody Negative s/c (NEGATIVE) 06/27/21 11:49 Rubella Antibody 12.5 IU/mL (>15) L 06/27/21 11:49 Varicella-Zoster IgG Antibody 1051 index (Immune >165) 06/27/21 11:49 Glucose 1 Hour 109 mg/dL (76-139) 10/30/21 12:10 Group B Streptococcus (PCR) Neg for grp b strep 12/18/21 09:36 -: Chlamydia screen: negative, Gonorrhea screen: negative and Urine: negative -: PAP smear: Normal Genetic Screens: Cell-free DNA: Normal and Alpha-fetoprotein: Normal External Labs -: Urine: negative Prior (ies) Past Pregnancies Del. Date GA/Weeks Labor Lgth Wt Sex Route Outcome Anesthesia Place Delv Breastfeed Preg Comp Name 08/14/17 40 40 7 lb 9 oz Female live - full t erm epidural [facility] 6 months + Formula failure to progress post-dates induction Patricia 04/16/20 39 8 lb 15 oz [facility], then formula. none Rick te Delivery Date: 08/14/17 Last Updated by: Melissa Millan R.N. *Pit Induction and FTP with severe PUPPS - Primary C/S. *Pushed for 4 hours and extended ROM. *Bad infection to C/S incision. *Really wanted a - discussed. Delivery Date: 04/16/20 Last Updated by: Sheyla Lemon R.N. Recalls Dr. 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 Evaluation Evaluation Baseline heart rate: 140 Variability: Moderate (11-25) monitor accelerations: Present Monitor Decelerations: Absent Status: Category l PFSH Medical History (Updated 01/04/22 @ 13:35 by Glory Padron MD) Anxiety Interstitial cystitis (~2012) Surgical History (Updated 12/18/21 @ 08:06 by Rachel Andrews MD) S/P cystoscopy (~2011) S/P primary low transverse (~04/16/20) Family History (Updated 05/23/21 @ 09:17 by Sheyla Lemon RN) Father Diabetes mellitus Mother Anemia Grandfather Family estrangement Unknown whether patient has any health problems Grandmother Family estrangement Unknown whether patient has any health problems Grandfather Brain tumor Prostate cancer Perforated sigmoid colon Grandmother Heavy smoker Lung cancer Brother Mental health disorder ADHD Traumatic brain injury Heroin addiction Social History marital status: number of children: 1 household members: spouse and children lives independently: Yes caregiver/support person: No pets and animals: Yes (X 2 cats and X 2 dogs : aware) education level: college (Real Estate ) 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 ) during the past year weight has: decreased > 10 lbs (losing baby weight) well-balanced diet: daily or most days (ongoing nausea, some aversions, not feeling great.) daily servings fruits/ve or more times/day (Vegetarian: lots of both fruits/veg.) caffeine: Yes (1 cup a day. ) Type(s) of exercise: bicycling (Spinning. 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 ) frequency: 3-4 times per week duration: 30-45 minutes/day Meds Home Medications and Allergies Home Medications Medication Instructions Recorded Confirmed Type prenat.vits,alvin,okv-lxso-zmfdb 1 tab PO DAILY 05/23/21 01/09/22 History ondansetron HCl 4 mg tablet 4 mg PO Q8H PRN nausea and 05/30/21 01/09/22 Rx (Zofran) vomiting #20 tabs Allergies Allergy/AdvReac Type Severity Reaction Status Date / Time amoxicillin Allergy Severe swelling, Verified 12/18/21 07:52 itchy around mouth and neck Penicillins Allergy Severe has not Verified 12/18/21 07:52 had for many years OB Exam Narrative Exam Narrative: Generally: Patient is sitting up in bed, no acute distress Lungs: Clear to auscultation bilaterally Cardiovascular: Regular rate and rhythm Fundal height: 39 cm Estimated weight: 7-1/2 lb Extremities: No edema, 1+ DTRs Objective Labs Result Diagrams: 01/09/22 06:40 Labs: Laboratory Results - last 24 hr 01/09/22 01/09/22 01/09/22 06:05 06:40 06:40 WBC 6.6 RBC 3.67 L Hgb 10.9 L Hct 32.3 L MCV 87.9 MCH 29.8 MCHC 33.9 RDW 14.5 Plt Count 199 Neut % (Auto) 70.1 Lymph % (Auto) 19.4 L Parke % (Auto) 9.0 Eos % (Auto) 1.1 L Baso % (Auto) 0.4 Neut # (Auto) 4600 Lymph # (Auto) 1300 Parke # (Auto) 600 Eos # (Auto) 100 Baso # (Auto) 0 SARS-CoV-2 (PCR) Negative Blood Type B Positive Antibody Screen Negative Assessment and Plan Assessment and Plan Assessment and Plan narrative: Assessment: 31-year-old 3 para 2 at 39-,2/7 weeks gestation with 2 previous section Plan: Repeat low-transverse section and scar revision The risks, benefits, and alternatives to the procedure were explained to the patient. The risks including bleeding, infection, injury to the bowel, bladder, or ureters. She understands these risks and agrees to proceed. A full par Q was held and consent form was signed. Time Spent with Patient Total time spent with greater than 50% in coordination of care (as documented) at patient's floor/unit and/or counseling patient:: 15-24 minutes
--- NOTE | 2022-01-09 07:45 | PM.PREOP ---
Pre-operative Note COVID-19 COVID-19 status: Negative Result date/Date tested (Pos, Neg/Pending): 01/09/22 Criteria for continued procedure: Non-surgical alternatives not available or appropriate per current SOC Interval Note History & Physical reviewed/Exam performed by Physician: Yes Changes to H&P: No H&P completed within 30 days and has changed as indicated here:: 01/09/22
[2022-01-09] MEDS: CEFAZOLIN 2 GM IN 0.9 % NACL 100 ML IV (08:00)
--- NOTE | 2022-01-09 08:33 | SUR.OPER ---
Viable female delivered via section at 08:28. Cord blood vials x2 and placenta sent with L&D RN.
[2022-01-09 09:16] VITALS: BP 100/73; PULSE 87; RESP 17; TEMP 36.1; O2SAT 94
--- NOTE | 2022-01-09 09:25 | PM.OBCS.1 ---
Operative Date/Time/Diagnoses Date of procedure: 01/09/22 Time of procedure: 09:25 Pre-op diagnosis: Thirty-nine weeks gestation 2 prior sections Post-op diagnosis: same Procedure & Clinicians Procedure: Repeat low-transverse section Same procedure as scheduled: Yes Indications: 39 weeks gestation Two prior section Surgeon: Glory Padron Click Yes if Unassisted: No Computer Operations Technician: Rachel Andrews Reason for Computer Operations Technician: The conventions assistant was necessary to retract upon entry into the abdomen and uterus. She is cyst did with delivery of the . On closure she retracted and clipped suture. She also closed the contralateral fascia. Anesthesia Type: Spinal (With Duramorph) Operative Notes Findings: Live female in the CODI presentation Small skin tag on the baby's right cheek Normal tubes and ovaries Large window in the lower uterine segment Closure Type: primary Specimen(s): cord blood and placenta Intraoperative meds administered: Duramorph, Ketorolac and Pitocin Applied: Catheter (To continuous drainage) Estimated Blood Loss (mL): 400 Blood products transfused: none Procedure in detail: The patient was taken to the operating room where she was placed in the seated position. Spinal anesthesia with Duramorph was administered. She was placed in the dorsal supine position with a leftward tilt. The spinal was found to not be adequate. Another spinal was performed. She was placed in the dorsal supine position with a leftward tilt, and prepped and draped in the usual sterile fashion. A Massey catheter was placed. SCDs were in place. A time-out was performed. The previous 2 incisions were excised in an elliptical fashion. The skin and some underlying subcutaneous tissue were excised. The incision was then carried down to the underlying layer of fascia and the fascia was nicked in the midline. The fascial incision was extended bilaterally with the Pedro scissors. The superior aspect of the fascial incision was grasped with the Ngoc clamps, elevated, and underlying rectus muscles dissected off sharply and bluntly. Attention was then turned to the inferior aspect of this incision which in a similar fashion was grasped with the Ngoc clamps, elevated, and underlying rectus muscles dissected off sharply and bluntly. The rectus muscles were in midline. The peritoneum was grasped between 2 hemostats and entered sharply with the Metzenbaum scissors. This incision was extended superiorly and inferiorly with good visualization of the bladder. The bladder blade was inserted. The vesicouterine peritoneum was grasped with a pickup and entered sharply with the Metzenbaum scissors. This incision was extended bilaterally with adhesions taken down and the bladder dissected off sharply and bluntly. The bladder blade was reinserted. There was found to be a window in the lower uterine segment measuring 3 cm x 3 cm. This was incised with the scalpel. There was a large amount of clear amniotic fluid. The uterine incision was extended bluntly. The infant's head was delivered with vacuum assistance. The nose and mouth were suctioned with bulb suction. The remainder of the body delivered without difficulty. After 1 minute, the cord was double clamped and cut. The was handed off to waiting RN and RT. Pitocin was given in the IV fluids. Cord bloods were obtained. The placenta was delivered manually. The uterus was cleared of all clots and debris. The cervix was opened using a ring forcep which was then handed off the table. The uterine incision was closed with 1. Chromic in a running interlocking fashion. Second layer the same suture was used for an imbricating layer. There was a small area just off to the left of midline that was oozing. A [id number] suture with 2-0 Vicryl was placed for hemostasis. The tubes and ovaries were examined and were found to be normal. The gutters were cleared of all clots and debris. The peritoneum was closed with 2 0 Vicryl in a running fashion. Fascia was reapproximated using 0 Vicryl in a running fashion. The subcutaneous layer was copiously irrigated with warm normal saline. Five simple interrupted sutures with 3-0 Vicryl were placed to reapproximate. The skin was closed with 4-0 Monocryl in a subcuticular fashion. Steri-Strips and an Aquacel dressing were placed. The uterus was expressed of a small amount of old blood. Sponge, lap, and instrument counts were correct x2. The patient tolerated the procedure well, and was taken to PACU in stable condition. Complications: none Baby 1: Infant Gender: Female Presentation: vertex Position: Left Occiput Anterior Placental Delivery Description: Manual Removal Cord Vessel Description: Clamped/Cut score (5 min): 8 score (10 min): 9 weight: 7 lb 15.6 oz Post-operative Condition: stable Disposition: PACU Aftercare: routine postop
[2022-01-09 09:26] VITALS: BP 100/65; PULSE 85; RESP 19; O2SAT 95
[2022-01-09 09:31] VITALS: BP 110/77; PULSE 92; RESP 26; O2SAT 95
[2022-01-09] MEDS: fentaNYL 100 MCG/2 ML INJ (09:35)
[2022-01-09] MEDS: ONDANSETRON 4 MG/2 ML INJ IV (09:35)
[2022-01-09 09:37] VITALS: BP 119/89; PULSE 57; RESP 25; O2SAT 95
[2022-01-09 09:41] VITALS: BP 126/88; PULSE 94; RESP 26; O2SAT 95
[2022-01-09] MEDS: MEPERIDINE 50 MG/ML INJ 25 MG IV (09:47)
[2022-01-09] MEDS: ACETAMINOPHEN 325 MG TABLET 650 MG PO ×2 (11:22→20:18)
[2022-01-09] MEDS: KETOROLAC 30 MG/ML VIAL IV ×2 (15:02→21:32)
[2022-01-10] MEDS: KETOROLAC 30 MG/ML VIAL IV (02:49)
[2022-01-10] MEDS: ACETAMINOPHEN 325 MG TABLET 650 MG PO ×3 (05:00→17:32)
[2022-01-10 06:14] LABS: Hematocrit 29.2 % (36-46); Hemoglobin 9.9 g/dL (12.0-16.0)
[2022-01-10] MEDS: IBUPROFEN 600 MG TABLET PO ×2 (08:33→17:32)
[2022-01-10] MEDS: PRENATAL VIT,CALC/IRON/FOLIC 1 TABLET 1 TAB PO (08:34)
[2022-01-10] MEDS: DOCUSATE 100 MG CAPSULE 200 MG PO (08:34)
--- NOTE | 2022-01-10 09:06 | PM.PNPO.1 ---
Subjective Subjective Date Patient Seen: 01/10/22 Time Patient Seen: 09:06 Interval history: pain controlled; breast feeding, +flatus Exam Vital Signs (past 8 hours): AF/VSS Oxygen Delivery Method Room Air Narrative Exam Narrative: FF / nontender GI Auscultation: normal bowel sounds Other: incision covered with dressing Objective Labs Result Diagrams: 01/10/22 06:08 Labs: Laboratory Results - last 24 hr 01/10/22 06:08 Hgb 9.9 L Hct 29.2 L PFSH Medical History (Updated 01/04/22 @ 13:35 by Glory Padron MD) Anxiety Interstitial cystitis (~2012) Surgical History (Updated 12/18/21 @ 08:06 by Rachel Andrews MD) S/P cystoscopy (~2011) S/P primary low transverse (~04/16/20) Family History (Updated 05/23/21 @ 09:17 by Sheyla Lemon RN) Father Diabetes mellitus Mother Anemia Grandfather Family estrangement Unknown whether patient has any health problems Grandmother Family estrangement Unknown whether patient has any health problems Grandfather Brain tumor Prostate cancer Perforated sigmoid colon Grandmother Heavy smoker Lung cancer Brother Mental health disorder ADHD Traumatic brain injury Heroin addiction Social History marital status: number of children: 1 household members: spouse and children lives independently: Yes caregiver/support person: No pets and animals: Yes (X 2 cats and X 2 dogs : aware) education level: college (Real Estate ) 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 ) during the past year weight has: decreased > 10 lbs (losing baby weight) well-balanced diet: daily or most days (ongoing nausea, some aversions, not feeling great.) daily servings fruits/ve or more times/day (Vegetarian: lots of both fruits/veg.) caffeine: Yes (1 cup a day. ) Type(s) of exercise: bicycling (Spinning. 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 ) frequency: 3-4 times per week duration: 30-45 minutes/day Assessment & Plan Post-op Postoperative Procedures: Procedures Operation Date: 01/09/22 07:45 Actual Procedure Side Surgeon p Repeat Section Glory Padron MD Postoperative status: doing well Postoperative plan: routine post-op care Postoperative plan narrative: Plan D/C after 36 hours Time Spent With Patient Time with patient: less than 15 minutes
[2022-01-10] MEDS: ONDANSETRON 4 MG/2 ML INJ IV (18:45)
== END 2022-01-10 20:00 | disposition home or self-care (01) | DRG 788 ==
PROVIDERS: Admitting Provider Obstetrics & Gynecology; PCP Registered Nurse Diabetes Educator; Referring Provider Obstetrics & Gynecology; Visit Provider Obstetrics & Gynecology
PROC: 10D00Z1 Extraction of Products of Conception, Low, Open Approach (ICD-10-PCS; CPT 59514; principal; 2022-01-09 07:45)
DX: O34.211 Maternal care for low transverse scar from previous cesarean delivery (principal); Z3A.39 39 weeks gestation of pregnancy; Z37.0 Single live birth; Z20.822 Contact with and (suspected) exposure to COVID-19
CPT/HCPCS: 36415; 59050; 59510; 59514; 59515; 85014; 85018; 85025; 86850; 86900; 86901; 87635; C9803; J0690; J1200; J1885; J2175; J2274; J2405; J2590; J2765; J3010